=== PATIENT | male | born 1970 | race Caucasian/White ===

== ENCOUNTER 2017-03-06 18:17 | Emergency (ER) | payer MEDICAID ==
[~2017-03-06] VITALS: Ht 180.3 cm; Wt 147.0 kg
[2017-03-06 23:56] LABS: Basophils # (auto) 0.1 uL; Basophils % (auto) 0.7 % (0.0-2.0); Eosinophils # (auto) 0 uL; Eosinophils % (auto) 0.2 % (0.0-7.0); Hematocrit 45.9 % (41.0-53.0); Lymphocytes # (auto) 0.7 uL; Lymphocytes % (auto) 7.6 % (10.0-50.0); Mean Corpuscular Hemoglobin 29.9 pg (28.0-32.0); Mean Corpuscular Hgb Conc. 34.9 g/dL (32.0-36.0); Mean Corpuscular Volume 85.7 fL (80.0-100.0); Monocytes # (auto) 0.5 uL; Monocytes % (auto) 5.3 % (0.0-12.0); Neutrophils # (auto) 7.9 uL; Neutrophils % (auto) 86.2 % (37.0-80.0); Platelet Count (auto) 244 10^3/uL (140-450); Red Blood Cells 5.35 10^6/uL (4.5-5.90); Red Cell Distribution Width 14.2 % (11.8-14.3); White Blood Cell 9.2 10^3/uL (4.4-10.8)
[2017-03-07 01:02] LABS: Alanine Aminotransferase 72 U/L (16-61); Albumin 3.8 g/dL (3.4-5.0); Anion Gap 11 (5-15); Aspartate Aminotransferase 41 U/L (15-37); BUN/Creatinine Ratio 9.1; Blood Urea Nitrogen 9 mg/dL (7-18); Calcium 9.4 mg/dL (8.5-10.1); Carbon Dioxide 22 mmol/L (21-32); Chloride 101 mmol/L (98-107); GFR African American 105 mL/min; GFR Non-African American 87 mL/min; Glucose 112 mg/dL (74-106); Potassium 4.2 mmol/L (3.5-5.1); Sodium 134 mmol/L (136-145)
[2017-03-07 01:07] LABS: Alkaline Phosphatase 68 U/L (45-117); Bilirubin, Total 0.8 mg/dL (0.2-1.0); Total Protein 7.4 g/dL (6.4-8.2)
[2017-03-07] MEDS ORDERED: SODIUM CHLORIDE 0.9% 1,000 ML IV ONE (01:32)
[2017-03-07] MEDS ORDERED: ASPirin 81 mg TAB PO ONE (01:45)
[2017-03-07] MEDS ORDERED: ONDANSETRON HCL 4 MG/2 ML VIAL IV ONE (01:45)
[2017-03-07] MEDS ORDERED: MORPHINE SULFATE 10 MG/ML INJ 1ML SDV IV ONE (01:45)
[2017-03-07] MEDS ORDERED: ACETAMINOPHEN 325 MG TAB PO ONE (03:30)
[2017-03-07] MEDS ORDERED: HYDROmorphone HCL 2 MG/ML VL IV ONE (03:45)
[2017-03-07 04:34] VITALS: BP 134/81
[2017-03-07 05:18] LABS: INR 0.92 (0.9-1.15); Partial Thromboplastin Time 28.5 sec (22.64-33.71)
[2017-03-07 06:16] LABS: Amphetamine Screen, Urine NEGATIVE (NEGATIVE); Barbiturate Scree,Urine NEGATIVE (NEGATIVE); Benzodiazephine Screen, Urine NEGATIVE (NEGATIVE); Cannabinoid Screen, Urine POSITIVE (NEGATIVE); Cocaine Screen, Urine NEGATIVE (NEGATIVE); Opiate Scree,Urine POSITIVE (NEGATIVE); Phencyclidine Screen, Urine NEGATIVE (NEGATIVE)
== END 2017-03-07 04:52 | disposition home or self-care (01) ==
LOC: ER 18:17
DX: R51 Headache (principal); R07.89 Other chest pain; I10 Essential (primary) hypertension; Z85.820 Personal history of malignant melanoma of skin
CPT/HCPCS: 36415; 36600; 71046; 80053; 80307; 82140; 82805; 84443; 84484; 85025; 85379; 85610; 85730; 93005; 96361; 96374; 96375; 99285; J1170; J2405